=== PATIENT | male | born 1995 | race Asian ===

== ENCOUNTER 2016-11-26 14:30 | Outpatient (CLI) | payer OTHER ==
[2016-11-26 15:33] LABS: % BASOPHILS 0.4 % (0.0-2.0); % EOSINOPHILS 0.8 % (0.0-5.0); % LYMPHOCYTES 24.7 % (20.0-50.0); % MONOCYTES 8.1 % (2.0-10.0); HEMATOCRIT 47.2 % (39.0-49.0); HEMOGLOBIN 15.9 gm/dL (13.2-17.3); MEAN CELL VOLUME 83.5 fl (80-99); MEAN CORPUSCULAR HEMOGLOBIN 28.2 pg (26.0-30.0); MEAN CORPUSCULAR HGB CONC 33.7 pg (28.0-36.0); MEAN PLATELET VOLUME 7.5 fl; NEUTROPHILE ABSOLUTE 5.2 Th/cmm (1.8-8.0); PLATELET COUNT 322 Th/cmm (150-400); RED BLOOD COUNT 5.65 Mil/cmm (4.30-5.70); RED CELL DISTRIBUTION WIDTH 12.8 % (11.5-20.0); WHITE BLOOD COUNT 7.9 Th/cmm (4.8-10.8)
[2016-11-26 16:13] LABS: ALB/GLOB RATIO 1.4 (1.0-1.8); ALKALINE PHOSPHATASE 83 U/L (34-104); ANION GAP 11.9 (7.0-16.0); BILIRUBIN,TOTAL 0.7 mg/dL (0.3-1.0); BUN - UREA NITROGEN 13 mg/dL (7-25); BUN/CREATININE RATIO 11.8; CALCIUM SERUM 10.3 mg/dL (8.6-10.3); CARBON DIOXIDE 25.7 mEq/L (21.0-31.0); CHLORIDE 102 mEq/L (98-107); CREATININE - SERUM 1.1 mg/dL (0.7-1.3); GLUCOSE 58 mg/dL (70-105); POTASSIUM SERUM 4.6 mEq/L (3.5-5.1); SGOT 38 U/L (13-39); SGPT/ALT 66 U/L (7-52); SODIUM SERUM 135 mEq/L (136-145)
[2016-11-26 16:14] LABS: CHOLESTEROL 150 mg/dL (<200); TRIGLYCERIDES 73 mg/dL (<150)
[2016-11-26 16:53] LABS: T3 (TRIIDOTHYRONNE) 1.08 ng/mL (0.87-1.78)
== END 2016-11-26 15:00 | disposition home or self-care (01) ==
LOC: LAB 14:30
PROVIDERS: ATTEND Internal Medicine
DX: Z00.00 Encounter for general adult medical examination without abnormal findings (principal)
CPT/HCPCS: 36415-UA; 80053-TC; 80061-TC; 84436-TC; 84443-TC; 84479-TC; 85025-TC

== ENCOUNTER 2018-11-01 14:32 | Emergency (ER) | payer OTHER ==
--- NOTE | 2018-11-01 15:00 | ED Physician Chart ---
ED Chief Complaint/HPI - Patient Information Date Seen:: 11/01/18 Time Seen:: 14:58 Chief Complaint:: Left knee pain History of Present Illness:: 23 yo male had left knee pain after ran, tripped and fell 2 days ago. Pt subsequently had difficulty walking due to pain. Vitals:: Vital Signs - 8 hr 11/01/18 14:44 Temp 97.8 F HR 72 RR 18 BP 129/87 O2 Sat % 96 ED Review of Systems - Review of Systems General/Constitutional: No fever Skin: No skin lesions Head: No headache Eyes: No pain ENT: No nasal drainage Neck: No neck pain Cardio Vascular: No chest pain Pulmonary: No SOB GI: No nausea, No vomiting Musculoskeletal: Bone or joint pain Psychiatric: No prior psych history Neurological: No focal symptoms ED Past Medical History - Past Medical History Past Medical History: No significant medical hx Social History: Non Smoker, Alcohol, No Drug Use Surgical History: None Family Medical History - Family Member Mother History Unknown: Yes ED Physical Exam - Physical Examination General/Constitutional: Awake, Alert Head: Atraumatic Eyes: PERRL, EOMI Skin: No skin lesions ENMT: Nasal exam nl Neck: No nuchal rigidity Respiratory: Clear to Auscultation Cardio Vascular: RRR, No murmur, gallop, rubs, NL S1 S2 GI: No tenderness/rebounding/guarding Other Extremities comments:: Left anterior knee tenderness, painful ROM, no limited ROM Neuro/Psych: No focal deficits ED Labs/Radiology/EKG Results - Radiology Results Results: Left knee X ray: normal ED Assessment - Assessment General Assessment: Left knee sprain Assessment/Comments:: Left knee X ray Toradol 30mg IM D/c home F/u PMD ED Septic Shock - . Is Septic Shock (SBP<90, OR Lactate>4 mmol\L) present?: No - <6hrs of presentation: Vital Signs: Vital Signs - 8 hr 11/01/18 14:44 Temp 97.8 F HR 72 RR 18 BP 129/87 O2 Sat % 96 ED Reassessment (Disposition) - Reassessment Reassessment Condition:: Improved - Patient Disposition Discharge/Transfer:: Home
--- NOTE | 2018-11-02 09:03 | Diagnostic Imaging Report ---
EXAM: Left knee HISTORY: Trauma COMPARISON: None FINDINGS: Multiple views of the left knee joint reviewed. The study demonstrates no evidence of fracture or dislocation. There is no evidence for joint effusion. The patella is intact. If clinically indicated ligamentous or meniscal injury is considered MRI examination might be helpful. IMPRESSION: Normal examination left knee joint.
== END 2018-11-01 16:01 | disposition home or self-care (01) ==
LOC: EEVIPCON 14:32 → ER 14:32
DX: S83.92XA Sprain of unspecified site of left knee, initial encounter (principal); W01.0XXA Fall on same level from slipping, tripping and stumbling without subsequent striking against object, initial encounter; Y93.02 Activity, running; Y92.89 Other specified places as the place of occurrence of the external cause; Y99.8 Other external cause status
CPT/HCPCS: 99283; 96372; 73564; J1885; 73562-TC-LT; Z7502